=== PATIENT | female | born 1955 | race Caucasian/White ===

== ENCOUNTER → 2022-12-30 | Outpatient (CLI) | payer BC | END | disposition home or self-care (01) | LOC: LAB 13:31 → LAB SHORT 13:31 | DX: E11.65 Type 2 diabetes mellitus with hyperglycemia (principal) | CPT/HCPCS: 82043 ==

== ENCOUNTER → 2023-12-24 | Outpatient (CLI) | payer BC | END | disposition home or self-care (01) | LOC: LAB SHORT 19:34 → LAB 19:34 | DX: M54.9 Dorsalgia, unspecified (principal) | CPT/HCPCS: 87086 ==